=== PATIENT | female | born 1960 | race American Indian/Alaskan Native ===

== ENCOUNTER 2018-02-04 18:57 | Emergency (ER) | payer OTHER ==
[2018-02-04 18:58] VITALS: BMI 31.6
[2018-02-04 19:14] VITALS: RESP 16; O2SAT 100
--- NOTE | 2018-02-04 20:25 | C.PDOC ---
History Of Present Illness 57 y/o F c PMHx DM p/w L sided shoulder pain, radiating into L hand, up L sided neck and L axilla. Denies particular trauma. Denies fever, chest pain, dyspnea, vomiting. Went to [facility] with complaint, referred to physcial therapy, which she states made it hurt more and stopped. Time Seen by Provider: 02/04/18 20:12 Chief Complaint (Nursing): Upper Extremity Problem/Injury Past Medical History Vital Signs: Last Vital Signs Temp 98.2 F 02/04/18 19:10 Pulse 62 02/04/18 19:10 Resp 16 02/04/18 19:10 BP 131/87 02/04/18 19:10 Pulse Ox 100 02/04/18 20:25 - Medical History PMH: Anemia, Diabetes, HTN, Hyperlipidemia Surgical History: Family History: States: Unknown Family Hx - Social History Hx Tobacco Use: No Hx Alcohol Use: No Hx Substance Use: No - Immunization History Hx Tetanus Toxoid Vaccination: No Hx Influenza Vaccination: No Hx Pneumococcal Vaccination: No Review Of Systems Except As Marked, All Systems Reviewed And Found Negative. Constitutional: Negative for: Fever Cardiovascular: Negative for: Chest Pain Physical Exam - Physical Exam Additional Physical Exam Comments: Constitutional: No acute distress. Head: Normocephalic. Atraumatic. Eyes: PERRL. ENT: Moist mucous membranes. Neck: Supple. Cardiovascular: Regular rate. Radial pulse 2+ bilaterally. Chest: No tenderness. Respiratory: Clear to auscultation bilaterally. GI: Soft. Nontender. Nondistended. Back: No CVA tenderness. Musculoskeletal: Tenderness to glenohumeral joint and L upper back without limited ROM or edema. Skin: No rash. Neurologic: Alert, no focal deficit. ED Course And Treatment O2 Sat by Pulse Oximetry: 100 Medical Decision Making Medical Decision Making: Toradol for pain. XR negative for fracture or dislocation. F/u [facility], likely needs outpatient MRI and ortho/instrumentation technician follow up. Disposition - Disposition Disposition: HOME/ ROUTINE Disposition Time: 21:31 Condition: STABLE Instructions: Shoulder Pain (DC) Forms: [facility] ([place]) - Clinical Impression Clinical Impression: Shoulder pain
[2018-02-04 21:37] VITALS: BP 126/84; PULSE 64; TEMP 98.6
--- NOTE | 2018-02-05 09:15 | RAD ---
Date of service: 02/04/2018 PROCEDURE: Radiographs of the Left Shoulder HISTORY: L shoulder pain COMPARISON: No prior. FINDINGS: BONES: No fracture or dislocation. JOINTS: Glenohumeral and acromioclavicular mild hypertrophic arthrosis present. Glenohumeral subcortical cystic changes present. SOFT TISSUES: Normal. OTHER FINDINGS: None. IMPRESSION: Degenerative changes-as above
== END 2018-02-04 21:36 | disposition home or self-care (01) ==
LOC: C.ER 18:57
DX: M25.512 Pain in left shoulder (principal)
CPT/HCPCS: 73030; 82948; 96372; 99284; J1885